=== PATIENT | male | born 1980 | race Caucasian/White ===

== ENCOUNTER → 2021-09-01 | Outpatient (CLI) | payer OTHER ==
--- NOTE | 2021-09-01 11:16 | RAD ---
EXAM: XR EXAM OF ANKLE_RIGHT 3VIEWS 09/01/2021 10:55 AM CLINICAL INDICATION: Right ankle pain, cyst lateral ankle, trouble walking for long time. COMPARISON: None TECHNIQUE: 3 views of the right ankle FINDINGS: No acute fracture. Alignment is normal. The ankle mortise is symmetric and talar dome is i ntact. Mild soft tissue swelling along the lateral malleolus. IMPRESSION: No acute osseous abnormality. Mild soft tissue swelling laterally. Electronically signed by: Ela Moses MD (09/01/2021 11:14 AM) [id number]
== END ==
LOC: RAD 10:37
PROVIDERS: ATTEND Podiatrist
DX: M79.89 Other specified soft tissue disorders (principal); M25.571 Pain in right ankle and joints of right foot
CPT/HCPCS: 73610